=== PATIENT | female | born 1975 | race American Indian/Alaskan Native ===

== ENCOUNTER 2017-07-09 20:34 | Emergency (ER) | payer OTHER ==
[2017-07-09 20:50] VITALS: BP 127/78; PULSE 70; RESP 16; TEMP 98.3; O2SAT 100
--- NOTE | 2017-07-09 22:34 | ED PDOC ---
HPI: Abdomen Time Seen by Provider: 07/09/17 21:06 Chief Complaint (Nursing): Abdominal Pain Chief Complaint (Provider): Abdominal Pain History Per: Patient History/Exam Limitations: no limitations Onset/Duration Of Symptoms: Days (x1) Current Symptoms Are (Timing): Still Present Additional Complaint(s): pt is 6 wk and complaining of abdominal pain and vaginal bleeding for one day. no fever/vomiting. Past Medical History Reviewed: Historical Data, Nursing Documentation, Vital Signs Vital Signs: Last Vital Signs Temp 98.3 F 07/09/17 20:47 Pulse 70 07/09/17 20:47 Resp 16 07/09/17 20:47 BP 127/78 07/09/17 20:47 Pulse Ox 100 07/09/17 22:35 - Medical History PMH: No Chronic Diseases - Surgical History Surgical History: No Surg Hx - Family History Family History: States: Unknown Family Hx, CAD (father and grandmother ) - Home Medications Home Medications: Ambulatory Orders Medication Instructions Recorded Famotidine [Pepcid] 20 mg PO BID #30 tab 04/17/15 Omeprazole [Prilosec] 20 mg PO DAILY #30 ecc 04/17/15 Sucralfate [Carafate] 1 gm PO TID #30 tab 04/17/15 Albuterol HFA [Ventolin HFA 90 1 - 2 puff IH Q4H PRN #1 bottle 04/14/16 mcg/actuation (8 g)] - Allergies Allergies/Adverse Reactions: Allergies Allergy/AdvReac Type Severity Reaction Status Date / Time No Known Allergies Allergy Verified 04/17/15 17:06 Review of Systems ROS Statement: Except As Marked, All Systems Reviewed And Found Negative Constitutional: Negative for: Fever Gastrointestinal: Positive for: Abdominal Pain Genitourinary Female: Positive for: Vaginal Bleeding Physical Exam - Reviewed Nursing Documentation Reviewed: Yes Vital Signs Reviewed: Yes - Physical Exam Appears: Positive for: Non-toxic, No Acute Distress Head Exam: Positive for: ATRAUMATIC, NORMAL INSPECTION, NORMOCEPHALIC Skin: Positive for: Normal Color, Warm, Dry Eye Exam: Positive for: EOMI, Normal appearance, PERRL Neck: Positive for: Normal, Painless ROM, Supple Cardiovascular/Chest: Positive for: Regular Rate, Rhythm. Negative for: Murmur Respiratory: Positive for: Normal Breath Sounds. Negative for: Respiratory Distress Gastrointestinal/Abdominal: Positive for: Tenderness (mild superpubic tenderness ) Back: Positive for: Normal Inspection. Negative for: L CVA Tenderness, R CVA Tenderness, Vertebral Tenderness Extremity: Positive for: Normal ROM. Negative for: Pedal Edema, Deformity Neurologic/Psych: Positive for: Alert, Oriented. Negative for: Motor/Sensory Deficits - ECG O2 Sat by Pulse Oximetry: 100 (RA) Pulse Ox Interpretation: Normal Medical Decision Making Medical Decision Making: Time: 21:47 Initial Impression: vag bleeding in r/o threatened Initial Plan: --Beta-HCG --CMP --CBC --US OB --Reevaluation --Discussed plan with patient, and pt was supposed to change into gown but patient left before treatment began. Scribe Attestation: Documented by Oscar Carter, acting as a scribe for Aliza Oro MD. Provider Scribe Attestation: All medical record entries made by the Scribe were at my direction and personally dictated by me. I have reviewed the chart and agree that the record accurately reflects my personal performance of the history, physical exam, medical decision making, and the department course for this patient. I have also personally directed, reviewed, and agree with the discharge instructions and disposition. Disposition - Clinical Impression Clinical Impression: Abdominal pain during - Patient ED Disposition Is Patient to be Admitted: No Counseled Patient/Family Regarding: Studies Performed, Diagnosis - Disposition Disposition: Left W/O Treatment Disposition Time: 21:47 Condition: STABLE Forms: [employer] ([place])
== END 2017-07-09 22:25 | disposition left against medical advice (07) ==
LOC: H.ER 20:34
DX: O26.91 Pregnancy related conditions, unspecified, first trimester (principal); O46.90 Antepartum hemorrhage, unspecified, unspecified trimester; Z3A.01 Less than 8 weeks gestation of pregnancy

== ENCOUNTER 2018-02-07 10:14 | Emergency (ER) | payer OTHER ==
[2018-02-07 10:21] VITALS: BP 126/73; PULSE 82; RESP 18; TEMP 98.9; O2SAT 98
--- NOTE | 2018-02-07 10:38 | ED PDOC ---
Lower Extremity Pain/Injury Time Seen by Provider: 02/07/18 10:22 Chief Complaint (Provider): Ankle pain History Per: Patient History/Exam Limitations: no limitations Onset/Duration Of Symptoms: Days (Thursday) Additional Complaint(s): Pt. missed a step and twisted her ankle left. Did not hit her head, back. No other injury. No weakness, numbness, tingles. Ambulated on it since. Here as pain still present. Past Medical History Reviewed: Nursing Documentation, Vital Signs Vital Signs: Last Vital Signs Temp 98.9 F 02/07/18 10:21 Pulse 82 02/07/18 10:21 Resp 18 02/07/18 10:21 BP 126/73 02/07/18 10:21 Pulse Ox 98 02/07/18 10:21 - Medical History PMH: No Chronic Diseases - Surgical History Surgical History: No Surg Hx - Family History Family History: States: Unknown Family Hx - Home Medications Home Medications: Ambulatory Orders Medication Instructions Recorded Famotidine [Pepcid] 20 mg PO BID #30 tab 04/17/15 Omeprazole [Prilosec] 20 mg PO DAILY #30 ecc 04/17/15 Sucralfate [Carafate] 1 gm PO TID #30 tab 04/17/15 Albuterol HFA [Ventolin HFA 90 1 - 2 puff IH Q4H PRN #1 bottle 04/14/16 mcg/actuation (8 g)] Ibuprofen [Motrin] 600 mg PO TID 7 Days tab 02/07/18 - Allergies Allergies/Adverse Reactions: Allergies Allergy/AdvReac Type Severity Reaction Status Date / Time No Known Allergies Allergy Verified 04/17/15 17:06 Review of Systems Constitutional: Negative for: Weakness Cardiovascular: Negative for: Chest Pain Respiratory: Negative for: Shortness of Breath Musculoskeletal: Positive for: Leg Pain, Foot Pain. Negative for: Neck Pain, Shoulder Pain, Arm Pain Skin: Negative for: Rash Neurological: Negative for: Weakness, Numbness Physical Exam - Reviewed Nursing Documentation Reviewed: Yes Vital Signs Reviewed: Yes - Physical Exam Appears: Positive for: Non-toxic, No Acute Distress Head Exam: Positive for: ATRAUMATIC, NORMAL INSPECTION, NORMOCEPHALIC Neck: Positive for: Normal, Painless ROM Cardiovascular/Chest: Positive for: Regular Rate, Rhythm Respiratory: Positive for: CNT, Normal Breath Sounds Pulses-Dorsalis Pedis (L): 2+ Pulses-Post. Tibialis (L): 2+ Back: Positive for: Normal Inspection. Negative for: L CVA Tenderness, R CVA Tenderness Extremity: Positive for: Normal ROM, Tenderness (b/l malleolus and medial proximal foot mild; foot region with swelling.), Other (no knee tenderness; no robb tenderness.). Negative for: Pedal Edema, Calf Tenderness, Deformity Neurologic/Psych: Positive for: Alert, Oriented - ECG O2 Sat by Pulse Oximetry: 98 - Radiology X-Ray: Read By Radiologist X-Ray Interpretation: No Acute Disease - Progress ED Course And Treament: 1125: Stable. AAOx3. Pain free. Tolerated PO. Ambulated with no issues. Fu with pcp. Disposition - Clinical Impression Clinical Impression: Ankle pain, Foot pain - Patient ED Disposition Is Patient to be Admitted: No Counseled Patient/Family Regarding: Studies Performed, Diagnosis, Need For Followup, Rx Given - Disposition Referrals: Podiatry Clinic [Outside] - 02/08/18 Disposition: Routine/Home Disposition Time: 11:26 Condition: STABLE Additional Instructions: Return if not better in 3 days. Prescriptions: Ibuprofen [Motrin] 600 mg PO TID 7 Days tab Instructions: Muscle Strain Forms: [facility] ([place]), [facility] School/Work Excuse
--- NOTE | 2018-02-07 11:02 | RAD ---
Date of service: 02/07/2018 PROCEDURE: Left Foot Radiographs. HISTORY: injury COMPARISON: Comparison made with concurrent radiographs of the left ankle FINDINGS: BONES: No evidence of acute displaced fracture nor dislocation.. Note made of tiny plantar and smaller posterior surface calcaneal enthesophytes. JOINTS: Normal. SOFT TISSUES: Normal. OTHER FINDINGS: None. IMPRESSION: No evidence of acute displaced fracture nor dislocation.
--- NOTE | 2018-02-07 11:07 | RAD ---
Date of service: 02/07/2018 PROCEDURE: Left Ankle Radiographs. HISTORY: Injury COMPARISON: None FINDINGS: BONES: Normal. No fracture. JOINTS: Normal. No osteoarthritis. Ankle mortise maintained. Talar dome intact SOFT TISSUES: Normal. OTHER FINDINGS: None. IMPRESSION: Normal left ankle radiographs.
== END 2018-02-07 11:40 | disposition home or self-care (01) ==
LOC: H.ER 10:14
DX: M25.572 Pain in left ankle and joints of left foot (principal); X50.9XXA Other and unspecified overexertion or strenuous movements or postures, initial encounter; Y99.0 Civilian activity done for income or pay